=== PATIENT | female | born 2000 | race Caucasian/White ===

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

== ENCOUNTER 2021-07-17 15:02 | Observation (INO) | payer BC ==
[2021-07-17] MEDS ORDERED: SODIUM CHLORIDE 0.9% 500 ML 500 ML IV STA (15:36)
--- NOTE | 2021-07-17 16:07 | ED ---
General Adult HPI - General Chief complaint: Nausea/Vomiting/Diarrhea Stated complaint: Chest pain,vomiting Time Seen by Provider: 07/17/21 15:35 Source: patient Mode of arrival: ambulatory Limitations: no limitations - History of Present Illness Initial comments: Michaela is a 21yo F who is brought to the ER today for evaluation of chest pain and vomiting. Reports that she was using the restroom, she developed some chest pain so she decided given the shower, while the shower the patient had a near syncopal or possibly syncopal episode. Her mother called EMS, patient was awake alert oriented complaining of pain in her chest. She was also nauseated and had some nonbloody nonbilious emesis. She complains of persistent retrosternal chest pain. Burning in nature. - Related Data Home Medications Medication Instructions Recorded Confirmed Escitalopram [Lexapro] 20 mg PO DAILY 07/17/21 07/17/21 Allergies Allergy/AdvReac Type Severity Reaction Status Date / Time No Known Allergies Allergy Verified 07/17/21 17:21 Review of Systems ROS Statement: Those systems with pertinent positive or pertinent negative responses have been documented in the HPI. ROS Other: All systems not noted in ROS Statement are negative. Past Medical History Past Medical History: No Reported History Additional Past Medical History / Comment(s): anorexia History of Any Multi-Drug Resistant Organisms: None Reported Past Surgical History: Adenoidectomy, Tonsillectomy Past Psychological History: Depression Smoking Status: Never smoker Past Alcohol Use History: None Reported Past Drug Use History: None Reported General Exam - General Exam Comments Initial Comments: Physical Exam GENERAL: Patient is well-developed and well-nourished. Patient is nontoxic and well- hydrated and is in no distress. HENT: Normocephalic, Atraumatic. EYES: PERRL, EOMI PULMONARY: Unlabored respirations. No audible rales rhonchi or wheezing was noted. CARDIOVASCULAR: There is a regular rate and rhythm without any murmurs gallops or rubs. ABDOMEN: Soft and nontender with normal bowel sounds. SKIN: Skin is clear with no lesions or rashes and otherwise unremarkable. : Deferred NEUROLOGIC: Patient is alert and oriented x3. Moving all extremities spontaneously MUSCULOSKELETAL: Normal extremities with adequate strength and full range of motion. No lower extremity swelling or edema. No calf tenderness. PSYCHIATRIC: Normal psychiatric evaluation. Limitations: no limitations Course Vital Signs 07/17/21 07/17/21 07/17/21 15:21 16:28 18:00 Temperature 97.9 F Pulse Rate 85 86 76 Respiratory 24 18 18 Rate Blood Pressure 120/73 105/75 123/100 O2 Sat by Pulse 99 99 97 Oximetry EKG Findings - EKG Comments: EKG Findings:: EEG was obtained due to complaint of chest pain, EKG was obtained at 1530 rate is 73 rhythm is sinus with a short KY, QRS is 88, QTC is prolonged at 570 there are no acute ST elevations but deep T-wave inversions in V1 through V3. This is an abnormal EKG but not ischemic. Medical Decision Making - Medical Decision Making The patient was seen and evaluated history is obtained from the patient, mother bedside and review of medical record This is a 21-year-old female who presents with chest pain and vomiting. Labs reveal leukocytosis with no other significant abnormalities Troponin and d-dimer not elevated Chest x-ray is unremarkable EKG reviewed reveals some short KY, QT prolongation and inverted T waves In the patient's persistent pain after morphine as well as abnormal EKG I do feel she warrants admission to the hospital for further monitoring. Care was discussed with her primary care physician Dr. Bey who is familiar with this patient has concern she may have developed pericarditis. He accepts the admission request an echo be ordered and a consult to cardiology. - Lab Data Result diagrams: 07/17/21 15:55 07/17/21 15:55 Lab Results 07/17/21 07/17/21 07/17/21 Range/Units 15:55 15:55 15:55 WBC 17.5 H (4.0-11.0) k/uL RBC 4.48 (3.80-5.40) m/uL Hgb 13.6 (11.4-16.0) gm/dL Hct 40.8 (34.0-46.0) % MCV 91.0 (80.0-100.0) fL MCH 30.4 (25.0-35.0) pg MCHC 33.4 (31.0-37.0) g/dL RDW 13.3 (11.5-15.5) % Plt Count 286 (150-450) k/uL MPV 9.6 Neutrophils % 85 % Lymphocytes % 9 % Monocytes % 5 % Eosinophils % 0 % Basophils % 0 % Neutrophils # 14.9 H (1.3-7.7) k/uL Lymphocytes # 1.6 (1.0-4.8) k/uL Monocytes # 0.9 (0-1.0) k/uL Eosinophils # 0.0 (0-0.7) k/uL Basophils # 0.1 (0-0.2) k/uL ESR (0-20) mm/hr PT 10.8 (9.0-12.0) sec INR 1.0 (<1.2) APTT 20.4 L (22.0-30.0) sec D-Dimer 0.44 (<0.60) mg/L FEU Sodium 136 L (137-145) mmol/L Potassium 3.4 L (3.5-5.1) mmol/L Chloride 102 (98-107) mmol/L Carbon Dioxide 16 L (22-30) mmol/L Anion Gap 18 mmol/L BUN 14 (7-17) mg/dL Creatinine 0.74 (0.52-1.04) mg/dL Est GFR (CKD-EPI)AfAm >90 (>60 ml/min/1.73 sqM) Est GFR (CKD-EPI)NonAf >90 (>60 ml/min/1.73 sqM) Glucose 204 H (74-99) mg/dL Calcium 10.1 (8.4-10.2) mg/dL Magnesium 1.8 (1.6-2.3) mg/dL Total Bilirubin 1.1 (0.2-1.3) mg/dL AST 40 H (14-36) U/L ALT 28 (4-34) U/L Alkaline Phosphatase 58 (38-126) U/L Troponin I (0.000-0.034) ng/mL C-Reactive Protein (<1.0) mg/dL Total Protein 8.4 H (6.3-8.2) g/dL Albumin 4.9 (3.5-5.0) g/dL Lipase 81 (23-300) U/L Coronavirus (PCR) (Not Detectd) 07/17/21 07/17/21 07/17/21 Range/Units 15:55 15:55 15:55 WBC (4.0-11.0) k/uL RBC (3.80-5.40) m/uL Hgb (11.4-16.0) gm/dL Hct (34.0-46.0) % MCV (80.0-100.0) fL MCH (25.0-35.0) pg MCHC (31.0-37.0) g/dL RDW (11.5-15.5) % Plt Count (150-450) k/uL MPV Neutrophils % % Lymphocytes % % Monocytes % % Eosinophils % % Basophils % % Neutrophils # (1.3-7.7) k/uL Lymphocytes # (1.0-4.8) k/uL Monocytes # (0-1.0) k/uL Eosinophils # (0-0.7) k/uL Basophils # (0-0.2) k/uL ESR 6 (0-20) mm/hr PT (9.0-12.0) sec INR (<1.2) APTT (22.0-30.0) sec D-Dimer (<0.60) mg/L FEU Sodium (137-145) mmol/L Potassium (3.5-5.1) mmol/L Chloride (98-107) mmol/L Carbon Dioxide (22-30) mmol/L Anion Gap mmol/L BUN (7-17) mg/dL Creatinine (0.52-1.04) mg/dL Est GFR (CKD-EPI)AfAm (>60 ml/min/1.73 sqM) Est GFR (CKD-EPI)NonAf (>60 ml/min/1.73 sqM) Glucose (74-99) mg/dL Calcium (8.4-10.2) mg/dL Magnesium (1.6-2.3) mg/dL Total Bilirubin (0.2-1.3) mg/dL AST (14-36) U/L ALT (4-34) U/L Alkaline Phosphatase (38-126) U/L Troponin I <0.012 (0.000-0.034) ng/mL C-Reactive Protein <0.5 (<1.0) mg/dL Total Protein (6.3-8.2) g/dL Albumin (3.5-5.0) g/dL Lipase (23-300) U/L Coronavirus (PCR) (Not Detectd) 07/17/21 Range/Units 17:22 WBC (4.0-11.0) k/uL RBC (3.80-5.40) m/uL Hgb (11.4-16.0) gm/dL Hct (34.0-46.0) % MCV (80.0-100.0) fL MCH (25.0-35.0) pg MCHC (31.0-37.0) g/dL RDW (11.5-15.5) % Plt Count (150-450) k/uL MPV Neutrophils % % Lymphocytes % % Monocytes % % Eosinophils % % Basophils % % Neutrophils # (1.3-7.7) k/uL Lymphocytes # (1.0-4.8) k/uL Monocytes # (0-1.0) k/uL Eosinophils # (0-0.7) k/uL Basophils # (0-0.2) k/uL ESR (0-20) mm/hr PT (9.0-12.0) sec INR (<1.2) APTT (22.0-30.0) sec D-Dimer (<0.60) mg/L FEU Sodium (137-145) mmol/L Potassium (3.5-5.1) mmol/L Chloride (98-107) mmol/L Carbon Dioxide (22-30) mmol/L Anion Gap mmol/L BUN (7-17) mg/dL Creatinine (0.52-1.04) mg/dL Est GFR (CKD-EPI)AfAm (>60 ml/min/1.73 sqM) Est GFR (CKD-EPI)NonAf (>60 ml/min/1.73 sqM) Glucose (74-99) mg/dL Calcium (8.4-10.2) mg/dL Magnesium (1.6-2.3) mg/dL Total Bilirubin (0.2-1.3) mg/dL AST (14-36) U/L ALT (4-34) U/L Alkaline Phosphatase (38-126) U/L Troponin I (0.000-0.034) ng/mL C-Reactive Protein (<1.0) mg/dL Total Protein (6.3-8.2) g/dL Albumin (3.5-5.0) g/dL Lipase (23-300) U/L Coronavirus (PCR) Not Detected (Not Detectd) Disposition Clinical Impression: Chest pain Disposition: ADMITTED IP TO THIS HOSP Condition: Stable Is patient prescribed a controlled substance at d/c from ED?: No
[2021-07-17 16:16] LABS: AST 40 U/L (14-36); African American GFR (CKD) >90 (>60 ml/min/1.73 sqM); Albumin 4.9 g/dL (3.5-5.0); Alkaline Phosphatase 58 U/L (38-126); Anion Gap 18 mmol/L; Blood Urea Nitrogen 14 mg/dL (7-17); Calcium 10.1 mg/dL (8.4-10.2); Carbon Dioxide 16 mmol/L (22-30); Chloride 102 mmol/L (98-107); Glucose 204 mg/dL (74-99); Lipase 81 U/L (23-300); Magnesium 1.8 mg/dL (1.6-2.3); Non-African American GFR(CKD) >90 (>60 ml/min/1.73 sqM); Potassium 3.4 mmol/L (3.5-5.1); Sodium 136 mmol/L (137-145); Total Bilirubin 1.1 mg/dL (0.2-1.3); Total Protein 8.4 g/dL (6.3-8.2)
[2021-07-17 16:24] LABS: ALT 28 U/L (4-34)
[2021-07-17 16:28] LABS: Basophils # (A) 0.1 k/uL (0-0.2); Basophils % (A) 0 %; Eosinophils % (A) 0 %; HCT 40.8 % (34.0-46.0); HGB 13.6 gm/dL (11.4-16.0); Lymphocytes # (A) 1.6 k/uL (1.0-4.8); Lymphocytes % (A) 9 %; MCH 30.4 pg (25.0-35.0); MCHC 33.4 g/dL (31.0-37.0); Mean Platelet Volume 9.6; Monocytes # (A) 0.9 k/uL (0-1.0); Monocytes % (A) 5 %; Neutrophils # (A) 14.9 k/uL (1.3-7.7); Neutrophils % (A) 85 %; Platelet Count 286 k/uL (150-450); RBC 4.48 m/uL (3.80-5.40); RDW 13.3 % (11.5-15.5); WBC 17.5 k/uL (4.0-11.0)
[2021-07-17 16:31] LABS: Prothrombin Time 10.8 sec (9.0-12.0)
[2021-07-17] MEDS ORDERED: MORPHINE SULFATE 4 MG/ML SYRINGE IVP STA (16:41)
[2021-07-17 16:45] LABS: Partial Thromboplastin Time 20.4 sec (22.0-30.0)
--- NOTE | 2021-07-17 17:01 | XR ---
EXAMINATION TYPE: XR chest 2V DATE OF EXAM: 07/17/2021 COMPARISON: NONE HISTORY: Chest pain TECHNIQUE: Frontal and lateral views of the chest are obtained. FINDINGS: There is no focal air space opacity, pleural effusion, or pneumothorax seen. The cardiac silhouette size is within normal limits. The osseous structures are intact. IMPRESSION: No acute cardiopulmonary process.
[2021-07-17] MEDS ORDERED: NITROGLYCERIN SL TABS 0.4 MG TAB SUBLINGUAL PRN (17:04)
[2021-07-17] MEDS ORDERED: HYDROmorphone 0.5 MG/0.5 ML SYRINGE IVP STA (18:39)
[2021-07-17] MEDS ORDERED: TRIMETHOBENZAMIDE 100 MG/ML 2 ML VIAL IM PRN (18:56)
[2021-07-17 19:21] LABS: Appearance,Urine Clear (Clear); Bacteria,Urine Occasional /hpf; Bilirubin,Urine Negative (Negative); Blood,Urine Negative (Negative); Color,Urine Yellow; Glucose,Urine (UA) 2+ (Negative); Leukocyte Esterase,Urine Trace (Negative); Mucus,Urine Rare /hpf; Nitrite,Urine Negative (Negative); PH, Urine 8.5 (5.0-8.0); Protein,Urine 1+ (Negative); RBC,Urine 4 /hpf (0-5); Specific Gravity,Urine 1.025 (1.001-1.035); Squamous Epithelial Cell,Urine 1 /hpf (0-4); Urobilinogen,Urine <2.0 mg/dL (<2.0); WBC,Urine 15 /hpf (0-5)
[2021-07-17 19:26] LABS: Ketones,Urine 4+ (Negative)
[2021-07-17 23:15] VITALS: RESP 16
[2021-07-18 07:15] VITALS: BP 90/50; PULSE 67; TEMP 97.9
[2021-07-18 08:51] LABS: African American GFR (CKD) >90 (>60 ml/min/1.73 sqM); Anion Gap 11 mmol/L; Blood Urea Nitrogen 12 mg/dL (7-17); Calcium 9.5 mg/dL (8.4-10.2); Carbon Dioxide 20 mmol/L (22-30); Chloride 105 mmol/L (98-107); Glucose 79 mg/dL (74-99); Magnesium 1.8 mg/dL (1.6-2.3); Non-African American GFR(CKD) >90 (>60 ml/min/1.73 sqM); Potassium 4.2 mmol/L (3.5-5.1); Sodium 136 mmol/L (137-145)
[2021-07-18] MEDS ORDERED: ASPIRIN 81 MG PO SCH (09:00)
[2021-07-18] MEDS ORDERED: ASPIRIN 325 MG TAB PO SCH (09:00)
[2021-07-18 09:06] LABS: HCT 41.2 % (34.0-46.0); HGB 13.2 gm/dL (11.4-16.0); MCH 29.7 pg (25.0-35.0); MCHC 31.9 g/dL (31.0-37.0); MCV 93.1 fL (80.0-100.0); Mean Platelet Volume 9.6; Platelet Count 205 k/uL (150-450); RBC 4.43 m/uL (3.80-5.40); RDW 13.4 % (11.5-15.5); WBC 10.1 k/uL (4.0-11.0)
--- NOTE | 2021-07-18 09:50 | P.CRDCN ---
History of Present Illness Consult date: 07/18/21 History of present illness: HISTORY OF PRESENT ILLNESS: This is a 21-year-old female with a past medical history significant for depression. Patient does not follow with a guest services representative. We have been asked to see the patient in consultation for chest pain. Patient examined at the bedside. Patient presented to the hospital today secondary to nausea and vomiting. The patient also reports she began having chest pain yesterday afternoon. She d enied any radiation of the pain. She denied having shortness of breath. She states the pain felt like a burning sensation in the middle of her chest. The pain did not get better or worse when laying flat in bed. At the time of examination, the patient denies having any chest pain or pressure. According to the ER physician note, there was concern for pericarditis. EKG reveals sinus mechanism with T-wave inversions in precordial leads, no previous EKG for comparison. Chest xray negative for acute process Laboratory data: Today WBC 10.1. Hemoglobin 13.2. Platelet count 205. Sodium 136. Potassium 4.2. BUN 12. Creatinine 0.73. Troponin negative 3. ESR 6. D-dimer 0.44. C-reactive protein less than 0.5. Current home cardiac medications include none REVIEW OF SYSTEMS: At the time of my exam: CONSTITUTIONAL: Denies fever or chills. HEENT: Denies blurred vision, vision changes, or eye pain. Denies hemoptysis CARDIOVASCULAR: Denies chest pain. Denies orthopnea. Denies PND. Denies palpitations RESPIRATORY: Denies shortness of breath. GASTROINTESTINAL: Denies abdominal pain. Denies nausea or vomiting. HEMATOLOGIC: Denies bleeding disorders. GENITOURINARY: Denies any blood in urine. SKIN: Denies pruitis. Denies rash. PHYSICAL EXAM: VITAL SIGNS: Reviewed. GENERAL: Well-developed in no acute distress. HEENT: Head is normocephalic. Pupils are equal, round. Sclerae anicteric. Mucous membranes of the mouth are moist. Neck supple. No JVD or thyromegaly LUNGS: Respirations even and unlabored. Lungs essentially clear to auscultation bilaterally. HEART: Regular rate and rhythm. S1 and S2 heard. ABDOMEN: Soft. Nondistended. Nontender. EXTREMITIES: Normal range of motion. No clubbing or cyanosis. Peripheral pulses intact. No lower extremity edema NEUROLOGIC: Awake and alert. Oriented x 3. ASSESSMENT: Nausea and vomiting Chest pain, atypical, troponin negative 3, no evidence of pericarditis Depression PLAN: An acute coronary event has been ruled out Obtain 2D echo to assess cardiac structure and function No evidence of pericarditis clinically Patient may be discharged home today after echo is completed and follow up outpatient with Dr. Pettit Nurse practitioner note has been reviewed by physician. Signing provider agrees with the documented findings, assessment, and plan of care. Past Medical History Past Medical History: No Reported History Additional Past Medical History / Comment(s): anorexia History of Any Multi-Drug Resistant Organisms: None Reported Past Surgical History: Adenoidectomy, Tonsillectomy Past Psychological History: Depression Smoking Status: Vaper Past Alcohol Use History: None Reported Past Drug Use History: None Reported Medications and Allergies Home Medications Medication Instructions Recorded Confirmed Type Escitalopram [Lexapro] 20 mg PO DAILY 07/17/21 07/17/21 History Allergies Allergy/AdvReac Type Severity Reaction Status Date / Time No Known Allergies Allergy Verified 07/17/21 17:21 Physical Exam Vitals: Vital Signs Temp Pulse Pulse Resp BP BP Pulse Ox 07/18/21 07:00 97.9 F 67 16 90/50 99 07/18/21 02:49 98.8 F 55 L 16 108/67 100 07/18/21 00:49 68 16 99/65 98 07/17/21 23:00 61 16 106/56 07/17/21 21:00 59 L 17 83/56 07/17/21 20:00 60 16 95/53 07/17/21 19:00 54 L 8 L 123/100 07/17/21 18:00 76 18 123/100 97 07/17/21 16:28 86 18 105/75 99 07/17/21 15:21 97.9 F 85 24 120/73 99 Intake and Output 07/17/21 07/18/21 07/18/21 22:59 06:59 14:59 Intake Total 358 Balance 358 Intake: Oral 358 Other: # Voids 2 Weight 45.9 kg 45.9 kg Results 07/18/21 07:16 07/18/21 07:16 Cardiac Enzymes 07/17/21 07/17/21 07/17/21 Range/Units 15:55 15:55 20:20 AST 40 H (14-36) U/L Troponin I <0.012 <0.012 (0.000-0.034) ng/mL 07/18/21 Range/Units 00:45 AST (14-36) U/L Troponin I <0.012 (0.000-0.034) ng/mL Coagulation 07/17/21 Range/Units 15:55 PT 10.8 (9.0-12.0) sec APTT 20.4 L (22.0-30.0) sec CBC 07/17/21 07/18/21 Range/Units 15:55 07:16 WBC 17.5 H 10.1 (4.0-11.0) k/uL RBC 4.48 4.43 (3.80-5.40) m/uL Hgb 13.6 13.2 (11.4-16.0) gm/dL Hct 40.8 41.2 (34.0-46.0) % Plt Count 286 205 (150-450) k/uL Comprehensive Metabolic Panel 07/17/21 07/18/21 Range/Units 15:55 07:16 Sodium 136 L 136 L (137-145) mmol/L Potassium 3.4 L 4.2 (3.5-5.1) mmol/L Chloride 102 105 (98-107) mmol/L Carbon Dioxide 16 L 20 L (22-30) mmol/L BUN 14 12 (7-17) mg/dL Creatinine 0.74 0.73 (0.52-1.04) mg/dL Glucose 204 H 79 (74-99) mg/dL Calcium 10.1 9.5 (8.4-10.2) mg/dL AST 40 H (14-36) U/L ALT 28 (4-34) U/L Alkaline Phosphatase 58 (38-126) U/L Total Protein 8.4 H (6.3-8.2) g/dL Albumin 4.9 (3.5-5.0) g/dL Current Medications Generic Name Dose Route Start Last Admin Trade Name Freq PRN Reason Stop Dose Admin Aspirin 81 mg 07/18/21 09:00 07/18/21 08:26 Aspirin 81 Mg PO Not Given DAILY IHSAN Nitroglycerin 0.4 mg 07/17/21 17:04 Nitroglycerin Sl Tabs 0.4 Mg Tab SUBLINGUAL Q5M PRN Chest Pain Trimethobenzamide HCl 100 mg 07/17/21 18:56 Trimethobenzamide 100 Mg/Ml 2 Ml Vial IM Q6HR PRN Nausea Intake and Output 07/17/21 07/18/21 07/18/21 22:59 06:59 14:59 Intake Total 358 Balance 358 Intake: Oral 358 Other: # Voids 2 Weight 45.9 kg 45.9 kg 07/18/21 07:16 07/18/21 07:16
[2021-07-18 11:14] LABS: HDL Cholesterol 78.5 mg/dL (40.00-60.00); Triglycerides 35.2 mg/dL (0.00-149.00)
[2021-07-18 11:27] LABS: Chol/HDL Ratio 1.87 Ratio; LDL Cholesterol,Direct Reflex 63.5 mg/dL (0.00-129.00)
--- NOTE | 2021-07-18 12:48 | P.HPIM ---
History of Present Illness H&P Date: 07/18/21 Chief Complaint: Chest pressure History and Physical and Discharge Summary This is a pleasant 21-year-old female with past medical history of anorexia, dep ression, Vaper and multiple other medical issues presented to the ER with complaints of new onset of midsternal chest pressure, tingling of bilateral hands and feet, accompanied by nausea and vomiting with near syncope in the shower. Denies cough, congestion. Denies fever or chills. Patient denies being under significant stress, episode was non- exertional . Currently denies lightheadedness, dizziness or focal deficits. Currently, denies chest pain, palpitations or shortness of breath. Afebrile, WBC on admission 17.5, currently within normal limits. Denies family history of heart disease, states both parents have diabetes mellitus. Hemoglobin A1c 5.1. Reports her mother had cold for 2 weeks ago, patient's coronavirus PCR negative. Chest x-ray reported no acute cardiopulmonary process. CRP less than 0.5. Pro-calcitonin less than 0.02. D-dimer 0.36. Troponins negative 3. Initial EKG reported QT prolongation at [address] elevations but with inverted T-wave V1 through V3, repeat EKG completed reporting no T-wave changes, no QT prolongation as reviewed per PCP. Electrodes within normal limits .Renal function stable. Review of Systems ROS Statement: Those systems with pertinent positive or pertinent negative responses have been documented in the HPI. ROS Other: All systems not noted in ROS Statement are negative. Past Medical History Past Medical History: No Reported History Additional Past Medical History / Comment(s): anorexia History of Any Multi-Drug Resistant Organisms: None Reported Past Surgical History: Adenoidectomy, Tonsillectomy Past Psychological History: Depression Smoking Status: Vaper Past Alcohol Use History: None Reported Past Drug Use History: None Reported Medications and Allergies Home Medications Medication Instructions Recorded Confirmed Type Escitalopram [Lexapro] 20 mg PO DAILY 07/17/21 07/17/21 History Allergies Allergy/AdvReac Type Severity Reaction Status Date / Time No Known Allergies Allergy Verified 07/17/21 17:21 Physical Exam Vitals: Vital Signs Temp Pulse Pulse Resp BP BP Pulse Ox 07/18/21 07:00 97.9 F 67 16 90/50 99 07/18/21 02:49 98.8 F 55 L 16 108/67 100 07/18/21 00:49 68 16 99/65 98 07/17/21 23:00 61 16 106/56 07/17/21 21:00 59 L 17 83/56 07/17/21 20:00 60 16 95/53 07/17/21 19:00 54 L 8 L 123/100 07/17/21 18:00 76 18 123/100 97 07/17/21 16:28 86 18 105/75 99 07/17/21 15:21 97.9 F 85 24 120/73 99 Intake and Output 07/17/21 07/18/21 07/18/21 22:59 06:59 14:59 Intake Total 358 Balance 358 Intake: Oral 358 Other: # Voids 2 Weight 45.9 kg 45.9 kg PHYSICAL EXAM: VITAL SIGNS: As above GENERAL: Sitting up in bed, no acute distress. HEENT: Conjunctivae normal. eyes normal. NECK: No JVD. No thyroid enlargement. No LNs CARDIOVASCULAR: S1, S2 regular. No murmur RESPIRATION: Breath sounds diminished in the bases. No rhonchi or crackles. No bronchial breathing. ABDOMEN: Soft, nontender . No guarding. no masses palpable. No ascites, No hepatosplenomegaly.Bowel sounds heard. LEGS: No edema. no swelling PSYCHIATRY: Alert and oriented X3, mood and affect normal. NERVOUS SYSTEM: Cranial N 2-12 grossly normal. Moves all 4 limbs. No focal deficits. Strength and sensation grossly intact. Skin: Warm and dry, no rash Results CBC & Chem 7: 07/18/21 07:16 07/18/21 07:16 Labs: Abnormal Lab Results - Last 24 Hours (Table) 07/17/21 07/17/21 07/17/21 Range/Units 15:55 15:55 15:55 WBC 17.5 H (4.0-11.0) k/uL Neutrophils # 14.9 H (1.3-7.7) k/uL APTT 20.4 L (22.0-30.0) sec Sodium 136 L (137-145) mmol/L Potassium 3.4 L (3.5-5.1) mmol/L Carbon Dioxide 16 L (22-30) mmol/L Glucose 204 H (74-99) mg/dL AST 40 H (14-36) U/L Total Protein 8.4 H (6.3-8.2) g/dL HDL Cholesterol (40.00-60.00) mg/dL Procalcitonin (0.02-0.09) ng/mL Urine pH (5.0-8.0) Urine Protein (Negative) Urine Glucose (UA) (Negative) Urine Ketones (Negative) Ur Leukocyte Esterase (Negative) Urine WBC (0-5) /hpf Urine Bacteria (None) /hpf Urine Mucus (None) /hpf 07/17/21 07/17/21 07/18/21 Range/Units 15:55 18:59 07:16 WBC (4.0-11.0) k/uL Neutrophils # (1.3-7.7) k/uL APTT (22.0-30.0) sec Sodium (137-145) mmol/L Potassium (3.5-5.1) mmol/L Carbon Dioxide (22-30) mmol/L Glucose (74-99) mg/dL AST (14-36) U/L Total Protein (6.3-8.2) g/dL HDL Cholesterol 78.50 H (40.00-60.00) mg/dL Procalcitonin <0.02 L (0.02-0.09) ng/mL Urine pH 8.5 H (5.0-8.0) Urine Protein 1+ H (Negative) Urine Glucose (UA) 2+ H (Negative) Urine Ketones 4+ H (Negative) Ur Leukocyte Esterase Trace H (Negative) Urine WBC 15 H (0-5) /hpf Urine Bacteria Occasional H (None) /hpf Urine Mucus Rare H (None) /hpf 07/18/21 Range/Units 07:16 WBC (4.0-11.0) k/uL Neutrophils # (1.3-7.7) k/uL APTT (22.0-30.0) sec Sodium 136 L (137-145) mmol/L Potassium (3.5-5.1) mmol/L Carbon Dioxide 20 L (22-30) mmol/L Glucose (74-99) mg/dL AST (14-36) U/L Total Protein (6.3-8.2) g/dL HDL Cholesterol (40.00-60.00) mg/dL Procalcitonin (0.02-0.09) ng/mL Urine pH (5.0-8.0) Urine Protein (Negative) Urine Glucose (UA) (Negative) Urine Ketones (Negative) Ur Leukocyte Esterase (Negative) Urine WBC (0-5) /hpf Urine Bacteria (None) /hpf Urine Mucus (None) /hpf Microbiology - Last 24 Hours (Table) 07/17/21 18:59 Urine Culture - Preliminary Urine,Voided Assessment and Plan Assessment: Acute chest pain, troponin is negative 3, atypical, cardiology following Nausea and vomiting, possible gastritis, resolved Depression, history of History of anorexia. Current Vaper. Plan: Continue on current medication regime ,monitoring and symptomatic treatment. Evaluated by cardiology with echo pending. All symptoms have subsided, patient denies any further nausea, vomiting. Patient denies chest pain, palpitations or shortness of breath. Patient is smiling and conversing, eager to be discharged. vaping cessation reinforced.Patient has been cleared by cardiology, once echo completed and will be discharged home today in a stable condition with guarded prognosis. The impression and plan of care has been dictated as directed. : I performed a history and examination of this patient, discussed the same with the dictator. I agree with the dictator's note ,documented as a scribe. Any additional findings or plans will be noted.
--- NOTE | 2021-07-18 12:54 | ECHOF ---
Referral Reason:concer for pericarditis MEASUREMENTS -------- HEIGHT: 132.1 cm WEIGHT: 45.8 kg BP: RVIDd: 2.1 cm (< 3.3) IVSd: 0.8 cm (0.6 - 1.1) LVIDd: 4.7 cm (3.9 - 5.3) LVPWd: 0.8 cm (0.6 - 1.1) IVSs: 1.0 cm LVIDs: 2.8 cm LVPWs: 1.2 cm LA Diam: 3.1 cm (2.7 - 3.8) Ao Diam: 2.6 cm (2.0 - 3.7) AV Cusp: 1.5 cm (1.5 - 2.6) LA Diam: 2.8 cm (2.7 - 3.8) MV E Giovany: 1.04 m/s MV DecT: 156 ms MV A Giovany: 0.38 m/s MV E/A Ratio: 2.74 RAP: 5.00 mmHg RVSP: 26.52 mmHg FINDINGS -------- Sinus rhythm. This was a technically good study. LV size, wall thickness and systolic function are normal, with an EF greater than 55%. The left george tricular size is normal. The right ventricle is normal in size. The left atrial size is normal. The right atrial size is normal. The aortic valve is trileaflet, and appears structurally normal. No aortic stenosis or regurgitation. Mild mitral regurgitation is present. Mild tricuspid regurgitation present. Right ventricular systolic pressure is normal at < 35 mmHg. There is no pulmonic regurgitation present. There is no pericardial effusion. CONCLUSIONS -------- 1. LV size, wall thickness and systolic function are normal, with an EF greater than 55%. 2. The left ventricular size is normal. 3. The right ventricle is normal in size. 4. The left atrial size is normal. 5. The right atrial size is normal. 6. The aortic valve is trileaflet, and appears structurally normal. No aortic stenosis or regurgitati on. 7. Mild mitral regurgitation is present. 8. Mild tricuspid regurgitation present. 9. There is no pericardial effusion. [employer]: Marcy Horton RDCS
== END 2021-07-18 13:22 | disposition home or self-care (01) ==
LOC: EC 15:02 → 6NMEDSUR 17:27
PROVIDERS: ADMIT Family Medicine; ATTEND Family Medicine
DX: R07.89 Other chest pain (principal); R07.2 Precordial pain; R11.2 Nausea with vomiting, unspecified; R19.7 Diarrhea, unspecified; R20.2 Paresthesia of skin; R94.31 Abnormal electrocardiogram [ECG] [EKG]; F32.A Depression, unspecified; Z20.822 Contact with and (suspected) exposure to COVID-19; D72.829 Elevated white blood cell count, unspecified; I08.1 Rheumatic disorders of both mitral and tricuspid valves; F17.290 Nicotine dependence, other tobacco product, uncomplicated; Z79.899 Other long term (current) drug therapy; Z71.6 Tobacco abuse counseling; Z86.59 Personal history of other mental and behavioral disorders; Z83.3 Family history of diabetes mellitus
CPT/HCPCS: 99285; 96374; 96375; 36415; 93005; 93306; 85379 ×2; 80061; 80053; 80048; 85652; 83690; 83735 ×2; 84484 ×2; 85025; 85027; 85610; 85730; 86140; 81001; 83721; 87086; 83036; 84145; 87635; 71046; G0378 ×2; J2270; J1170

== ENCOUNTER 2021-09-05 10:44 | Emergency (ER) | payer BC ==
[2021-09-05 10:59] VITALS: TEMP 97.8
[2021-09-05] MEDS ORDERED: SODIUM CHLORIDE 0.9% 500 ML 500 ML IV STA (11:46)
[2021-09-05] MEDS ORDERED: SODIUM CHLORIDE 0.9% 1,000 ML IV STA (11:46)
[2021-09-05 12:25] LABS: Basophils % (A) 0 %; Eosinophils # (A) 0.1 k/uL (0-0.7); Eosinophils % (A) 1 %; HCT 43.6 % (34.0-46.0); HGB 14.6 gm/dL (11.4-16.0); Lymphocytes # (A) 0.3 k/uL (1.0-4.8); Lymphocytes % (A) 3 %; MCH 30.1 pg (25.0-35.0); MCHC 33.4 g/dL (31.0-37.0); MCV 90.1 fL (80.0-100.0); Mean Platelet Volume 8.5; Monocytes # (A) 0.2 k/uL (0-1.0); Monocytes % (A) 2 %; Neutrophils # (A) 10.6 k/uL (1.3-7.7); Neutrophils % (A) 94 %; Platelet Count 220 k/uL (150-450); RBC 4.84 m/uL (3.80-5.40); RDW 12.5 % (11.5-15.5); WBC 11.3 k/uL (4.0-11.0)
[2021-09-05 12:49] LABS: AST 86 U/L (14-36); African American GFR (CKD) >90 (>60 ml/min/1.73 sqM); Albumin 5.2 g/dL (3.5-5.0); Alkaline Phosphatase 54 U/L (38-126); Amylase 65 U/L (30-110); Anion Gap 16 mmol/L; Blood Urea Nitrogen 16 mg/dL (7-17); Calcium 9.9 mg/dL (8.4-10.2); Carbon Dioxide 20 mmol/L (22-30); Chloride 100 mmol/L (98-107); Glucose 175 mg/dL (74-99); Lipase 35 U/L (23-300); Magnesium 1.5 mg/dL (1.6-2.3); Non-African American GFR(CKD) >90 (>60 ml/min/1.73 sqM); Potassium 3.6 mmol/L (3.5-5.1); Sodium 136 mmol/L (137-145); Total Protein 9.7 g/dL (6.3-8.2)
[2021-09-05 12:53] LABS: Appearance,Urine Clear (Clear); Bilirubin,Urine Negative (Negative); Blood,Urine Trace (Negative); Color,Urine Yellow; Glucose,Urine (UA) Trace (Negative); Ketones,Urine 3+ (Negative); Leukocyte Esterase,Urine Negative (Negative); Mucus,Urine Many /hpf; Nitrite,Urine Negative (Negative); PH, Urine 8.5 (5.0-8.0); Protein,Urine 4+ (Negative); RBC,Urine 56 /hpf (0-5); Specific Gravity,Urine 1.037 (1.001-1.035); Squamous Epithelial Cell,Urine 5 /hpf (0-4); WBC,Urine 5 /hpf (0-5)
--- NOTE | 2021-09-05 12:54 | ED ---
General Adult HPI - General Chief complaint: Nausea/Vomiting/Diarrhea Stated complaint: Vomiting Time Seen by Provider: 09/05/21 11:01 Source: patient, RN notes reviewed Mode of arrival: ambulatory Limitations: no limitations - History of Present Illness Initial comments: This a 21-year-old female presents emergency Department chief complaint of nausea vomiting diarrhea. Patient states that she's been having recurrent issues with this she doesn't that she has an eating disorder. She complains of diffuse abdominal pain primarily though in her upper abdomen. She does complain of emesis that is primarily bilateral denies any hematemesis or coffee-ground emesis. Denies fever chills denies any flank pain denies any chance . - Related Data Home Medications Medication Instructions Recorded Confirmed Escitalopram [Lexapro] 20 mg PO DAILY 07/17/21 09/05/21 Previous Rx's Medication Instructions Recorded Omeprazole [PriLOSEC] 20 mg PO DAILY #14 cap 09/05/21 Ondansetron Odt [Zofran Odt] 4 mg PO Q8HR PRN #14 tab 09/05/21 Allergies Allergy/AdvReac Type Severity Reaction Status Date / Time No Known Allergies Allergy Verified 09/05/21 11:58 Review of Systems ROS Statement: Those systems with pertinent positive or pertinent negative responses have been documented in the HPI. ROS Other: All systems not noted in ROS Statement are negative. Past Medical History Past Medical History: No Reported History Additional Past Medical History / Comment(s): anorexia History of Any Multi-Drug Resistant Organisms: None Reported Past Surgical History: Adenoidectomy, Tonsillectomy Past Psychological History: Depression Smoking Status: Vaper Past Alcohol Use History: None Reported Past Drug Use History: None Reported General Exam Limitations: no limitations General appearance: alert, in no apparent distress Head exam: Present: atraumatic, normocephalic, normal inspection Eye exam: Present: normal appearance, PERRL, EOMI. Absent: scleral icterus, conjunctival injection, periorbital swelling ENT exam: Present: normal exam, mucous membranes moist Neck exam: Present: normal inspection. Absent: tenderness, meningismus, lymphadenopathy Respiratory exam: Present: normal lung sounds bilaterally. Absent: respiratory distress, wheezes, rales, rhonchi, stridor Cardiovascular Exam: Present: regular rate, normal rhythm, normal heart sounds. Absent: systolic murmur, diastolic murmur, rubs, gallop, clicks GI/Abdominal exam: Present: soft, tenderness (Epigastric), normal bowel sounds. Absent: distended, guarding, rebound, rigid Course Vital Signs 09/05/21 09/05/21 09/05/21 10:57 13:01 14:24 Temperature 97.8 F Pulse Rate 80 57 L 97 Respiratory 24 16 18 Rate Blood Pressure 118/72 118/72 O2 Sat by Pulse 100 100 99 Oximetry Medical Decision Making - Medical Decision Making 21-year-old presented for nausea vomiting. Patient has a eating disorder. Patient is hydrated, given antiemetics and GI cocktail. Patient states this improved she is able to keep the genitorectal thumb. Patient discharged on omeprazole, Zofran will follow-up with PCP and return for any worsening Sympt oms. - Lab Data Result diagrams: 09/05/21 12:00 09/05/21 12:00 Lab Results 09/05/21 09/05/21 09/05/21 Range/Units 12:00 12:00 12:00 WBC 11.3 H (4.0-11.0) k/uL RBC 4.84 (3.80-5.40) m/uL Hgb 14.6 (11.4-16.0) gm/dL Hct 43.6 (34.0-46.0) % MCV 90.1 (80.0-100.0) fL MCH 30.1 (25.0-35.0) pg MCHC 33.4 (31.0-37.0) g/dL RDW 12.5 (11.5-15.5) % Plt Count 220 (150-450) k/uL MPV 8.5 Neutrophils % 94 % Lymphocytes % 3 % Monocytes % 2 % Eosinophils % 1 % Basophils % 0 % Neutrophils # 10.6 H (1.3-7.7) k/uL Lymphocytes # 0.3 L (1.0-4.8) k/uL Monocytes # 0.2 (0-1.0) k/uL Eosinophils # 0.1 (0-0.7) k/uL Basophils # 0.0 (0-0.2) k/uL Sodium (137-145) mmol/L Potassium (3.5-5.1) mmol/L Chloride (98-107) mmol/L Carbon Dioxide (22-30) mmol/L Anion Gap mmol/L BUN (7-17) mg/dL Creatinine (0.52-1.04) mg/dL Est GFR (CKD-EPI)AfAm (>60 ml/min/1.73 sqM) Est GFR (CKD-EPI)NonAf (>60 ml/min/1.73 sqM) Glucose (74-99) mg/dL Plasma Lactic Acid [place] (0.7-2.0) mmol/L Calcium (8.4-10.2) mg/dL Magnesium (1.6-2.3) mg/dL Total Bilirubin (0.2-1.3) mg/dL AST (14-36) U/L ALT (4-34) U/L Alkaline Phosphatase (38-126) U/L Total Protein (6.3-8.2) g/dL Albumin (3.5-5.0) g/dL Amylase (30-110) U/L Lipase (23-300) U/L Urine Color Yellow Urine Appearance Clear (Clear) Urine pH 8.5 H (5.0-8.0) Ur Specific [place] 1.037 H (1.001-1.035) Urine Protein 4+ H (Negative) Urine Glucose (UA) Trace H (Negative) Urine Ketones 3+ H (Negative) Urine Blood Trace H (Negative) Urine Nitrite Negative (Negative) Urine Bilirubin Negative (Negative) Urine Urobilinogen 2.0 (<2.0) mg/dL Ur Leukocyte Esterase Negative (Negative) Urine RBC 56 H (0-5) /hpf Urine WBC 5 (0-5) /hpf Ur Squamous Epith Cells 5 H (0-4) /hpf Urine Mucus Many H (None) /hpf Urine HCG, Qual Not Detected (Not Detectd) 09/05/21 09/05/21 Range/Units 12:00 12:00 WBC (4.0-11.0) k/uL RBC (3.80-5.40) m/uL Hgb (11.4-16.0) gm/dL Hct (34.0-46.0) % MCV (80.0-100.0) fL MCH (25.0-35.0) pg MCHC (31.0-37.0) g/dL RDW (11.5-15.5) % Plt Count (150-450) k/uL MPV Neutrophils % % Lymphocytes % % Monocytes % % Eosinophils % % Basophils % % Neutrophils # (1.3-7.7) k/uL Lymphocytes # (1.0-4.8) k/uL Monocytes # (0-1.0) k/uL Eosinophils # (0-0.7) k/uL Basophils # (0-0.2) k/uL Sodium 136 L (137-145) mmol/L Potassium 3.6 (3.5-5.1) mmol/L Chloride 100 (98-107) mmol/L Carbon Dioxide 20 L (22-30) mmol/L Anion Gap 16 mmol/L BUN 16 (7-17) mg/dL Creatinine 0.74 (0.52-1.04) mg/dL Est GFR (CKD-EPI)AfAm >90 (>60 ml/min/1.73 sqM) Est GFR (CKD-EPI)NonAf >90 (>60 ml/min/1.73 sqM) Glucose 175 H (74-99) mg/dL Plasma Lactic Acid [place] 3.7 H* (0.7-2.0) mmol/L Calcium 9.9 (8.4-10.2) mg/dL Magnesium 1.5 L (1.6-2.3) mg/dL Total Bilirubin 1.0 (0.2-1.3) mg/dL AST 86 H (14-36) U/L ALT 52 H (4-34) U/L Alkaline Phosphatase 54 (38-126) U/L Total Protein 9.7 H (6.3-8.2) g/dL Albumin 5.2 H (3.5-5.0) g/dL Amylase 65 (30-110) U/L Lipase 35 (23-300) U/L Urine Color Urine Appearance (Clear) Urine pH (5.0-8.0) Ur Specific [place] (1.001-1.035) Urine Protein (Negative) Urine Glucose (UA) (Negative) Urine Ketones (Negative) Urine Blood (Negative) Urine Nitrite (Negative) Urine Bilirubin (Negative) Urine Urobilinogen (<2.0) mg/dL Ur Leukocyte Esterase (Negative) Urine RBC (0-5) /hpf Urine WBC (0-5) /hpf Ur Squamous Epith Cells (0-4) /hpf Urine Mucus (None) /hpf Urine HCG, Qual (Not Detectd) Disposition Clinical Impression: Dehydration, Gastroenteritis Disposition: HOME SELF-CARE Condition: Stable Instructions (If sedation given, give patient instructions): Acute Nausea and Vomiting (ED) Additional Instructions: Please return to the Emergency Department if symptoms worsen or any other concerns. Prescriptions: Omeprazole [PriLOSEC] 20 mg PO DAILY #14 cap Ondansetron Odt [Zofran Odt] 4 mg PO Q8HR PRN #14 tab PRN Reason: Nausea Is patient prescribed a controlled substance at d/c from ED?: No Referrals: Floyd Bey Jr, [Primary Care Provider] - 1-2 days Gume Rivas MD [STAFF PHYSICIAN] - 1-2 days Virginia Matthew MD [STAFF PHYSICIAN] - 1-2 days Time of Disposition: 14:47
[2021-09-05 12:55] LABS: ALT 52 U/L (4-34)
[2021-09-05] MEDS ORDERED: MAG HYDROX/AL HYDROX/SIMETH 30 ML, HYOSCYAMINE ELIXIR 10 ML, LIDOCAINE VISCOUS 2% 10 ML PO STA ×3 (13:52)
[2021-09-05] MEDS ORDERED: ONDANSETRON 4 MG/2 ML VIAL IVP STA (13:52)
[2021-09-05 14:51] VITALS: RESP 16
[2021-09-05 14:52] VITALS: BP 119/69; PULSE 89
== END 2021-09-05 14:55 | disposition home or self-care (01) ==
LOC: EC 10:44
DX: K52.9 Noninfective gastroenteritis and colitis, unspecified (principal); E86.0 Dehydration; F17.209 Nicotine dependence, unspecified, with unspecified nicotine-induced disorders
CPT/HCPCS: 36415; 80053; 82150; 83605; 83690; 83735; 85025; 81001; 81025; 99284; 96374; 96375; J2405; J1790

== ENCOUNTER 2021-11-02 09:32 | Day surgery (SDC) | payer BC ==
[~2021-11-02 09:32] MED LIST: LACTATED RINGERS 1,000 ML IV SCH
[2021-11-02 10:09] VITALS: TEMP 98.6
[2021-11-02] MEDS ORDERED: PROPOFOL 10 MG/ML 20 ML VIAL IV ONE (10:39)
[2021-11-02] MEDS ORDERED: LIDOCAINE 2% INJ 20 MG/ML (2 ML VIAL) ONE (10:39)
--- NOTE | 2021-11-02 10:53 | P.PCN ---
Date of Procedure: 11/02/21 Procedure(s) Performed: BRIEF HISTORY: Patient is a 71-year-old, pleasant, white female scheduled for an upper endoscopy as a part of evaluation of epigastric pain for the last several months duration. She has these episodes once or twice a week. Denies any nausea vomiting. Had been to the emergency room a couple of times and ultrasound of abdomen as well as CAT scan was unremarkable.. PROCEDURE PERFORMED: Esophagogastroduodenoscopy with biopsy. PREOPERATIVE DIAGNOSIS: Chronic Epigastric pain of 1 year duration. IV sedation per anesthesia. PROCEDURE: After informed consent was obtained, the patient was brought into the endoscopy unit. IV sedation was administered by Anesthesia under continuous monitoring. Initially the Olympus GIF-140 video endoscope was inserted into the mouth. Esophagus intubated without any difficulty. It was gradually advanced into the stomach and duodenum and carefully examined. The bulb and the second part of the duodenum appeared normal. Abscesses were done from the duodenum to rule out celiac disease. The scope at this time was withdrawn to the stomach, adequately insufflated with air, and upon careful examination, mucosa of the antrum had mild mottling of the mucosa in the prepyloric area which was biopsied. Rest of the, body, cardia and the fundus appeared normal. The scope was then withdrawn into the esophagus. The GE junction was located at 39 cm from the incisors. Small sliding type hiatal hernia noted. The esophagus appeared normal. There were no erosions or ulcerations seen and biopsies were done from the distal esophagus and the patient tolerated the procedure well. IMPRESSION: 1. Mild antral gastritis. 2. Small sliding-type well hernia but no evidence of esophagitis. RECOMMENDATIONS: The findings of this examination were discussed with the patient as well as a family. She was advised to follow with the biopsy. She will continue with omeprazole 20 mg daily and follow antireflux measures..
[2021-11-02 11:23] VITALS: BP 109/68; PULSE 72; RESP 20
== END 2021-11-02 11:43 | disposition home or self-care (01) ==
LOC: ORWHC2ENDO 09:32
PROVIDERS: ATTEND Internal Medicine Gastroenterology
DX: R10.13 Epigastric pain (principal); K21.9 Gastro-esophageal reflux disease without esophagitis; K29.50 Unspecified chronic gastritis without bleeding; Z79.899 Other long term (current) drug therapy; K44.9 Diaphragmatic hernia without obstruction or gangrene
CPT/HCPCS: 81025; 88305; 43239; J2704; J2001